=== PATIENT | female | born 1965 | race Caucasian/White ===

== ENCOUNTER → 2024-11-18 | Outpatient (CLI) | payer BC, SELFPAY ==
--- NOTE | 2024-11-18 14:49 | XR_ITS ---
Examination: Foot, left, 3 views Technique: AP, oblique, lateral views foot, 3 views Date and time of exam: November 18, 2024 1500 hours INDICATIONS: Injury to the foot yesterday, foot pain. FINDINGS: Acute spiral fracture midportion proximal phalanx fourth digit No significant displacement No dislocation IMPRESSION: Acute fracture proximal phalanx fourth digit
== END | disposition home or self-care (01) ==
LOC: CDIM 14:34
PROVIDERS: PCP Family Medicine; Referring Provider Nurse Practitioner; Visit Provider Nurse Practitioner
DX: S92.512A Displaced fracture of proximal phalanx of left lesser toe(s), initial encounter for closed fracture (principal); X58.XXXA Exposure to other specified factors, initial encounter
CPT/HCPCS: 73630

== ENCOUNTER → 2025-06-29 | Outpatient (CLI) | payer BC, SELFPAY ==
[2025-06-29 14:46] LABS: Follicle Stimulating Hormone 25.08 mIU/mL (See Note)
[2025-07-09 06:23] LABS: Estradiol, Ultrasensitive* 40 pg/mL; Testosterone,Total* 69 ng/dL (2-45)
== END | disposition home or self-care (01) ==
LOC: COPL 12:44
PROVIDERS: PCP Internal Medicine; Referring Provider Internal Medicine; Visit Provider Internal Medicine
DX: E34.9 Endocrine disorder, unspecified (principal)
CPT/HCPCS: 36415; 82670; 83001; 84403